=== PATIENT | female | born 1995 | race Caucasian/White ===

== ENCOUNTER 2017-01-20 16:03 | Emergency (ER) | payer OTHER ==
[2017-01-20 16:42] VITALS: BP 110/62; PULSE 60; RESP 17; TEMP 98.5; O2SAT 100
[2017-01-20 17:11] LABS: RBC URINE 1 /hpf (0-3); URINE BACTERIA RARE (<OCC); URINE BILIRUBIN NEGATIVE (NEGATIVE); URINE BLOOD NEGATIVE (NEGATIVE); URINE COLOR Yellow (YELLOW); URINE GLUCOSE (UA) NORMAL (Normal); URINE KETONE NEGATIVE (NEGATIVE); URINE PROTEIN NEGATIVE (NEGATIVE); URINE UROBILINOGEN NORMAL mg/dL (0.2-1.0); WBC URINE 3 /hpf (0-5)
[2017-01-20 17:12] LABS: URINE LEUKOCYTE ESTERASE NEGATIVE Leu/uL (Negative)
--- NOTE | 2017-01-20 17:44 | C.PDOC ---
History Of Present Illness 21 yo female w/o significant PMHx come in for evaluation of intermittent nausea and episodes of dizziness for apst 3-4 days. Pt reports, dizziness mostly on body position, " sometime feels like anxious, needs to leave the room". Otherwise, pt denies fever, chills, recent illness, severe headache, vertigo, visual changes, focal deficits, neck pain, CP, SOB, palpitation, cough, abd. pain, V/D, back pain, UTI sx. Ambulate to ED for evaluation, not in any apparent distress. Pt reports- asymptomatic at present time. FYI: Records from previous ED visits review, last one was on12/31/16 when pt was evaluated due to abdominal pain, blood work review and appears normal. Time Seen by Provider: 01/20/17 16:42 Chief Complaint (Nursing): Dizziness/Lightheaded History Per: Patient Onset/Duration Of Symptoms: Intermittent Episodes Past Medical History Reviewed: Historical Data, Nursing Documentation, Vital Signs Vital Signs: Last Vital Signs Temp 98.5 F 01/20/17 16:39 Pulse 60 01/20/17 16:39 Resp 17 01/20/17 16:39 BP 110/62 01/20/17 16:39 Pulse Ox 100 01/20/17 16:39 - Medical History PMH: Anemia Surgical History: No Surg Hx Family History: States: Unknown Family Hx - Social History Hx Alcohol Use: No Hx Substance Use: No - Immunization History Hx Tetanus Toxoid Vaccination: No Hx Influenza Vaccination: No Hx Pneumococcal Vaccination: No Review Of Systems Except As Marked, All Systems Reviewed And Found Negative. Constitutional: Negative for: Fever, Chills Eyes: Negative for: Vision Change ENT: Negative for: Throat Pain Cardiovascular: Negative for: Chest Pain, Palpitations Respiratory: Negative for: Cough, Shortness of Breath, Wheezing Gastrointestinal: Positive for: Nausea. Negative for: Vomiting, Abdominal Pain , Diarrhea Genitourinary: Negative for: Dysuria, Frequency, Vaginal Discharge, Vaginal Bleeding Musculoskeletal: Negative for: Neck Pain Skin: Negative for: Rash Neurological: Positive for: Dizziness. Negative for: Weakness, Numbness, Altered Mental Status, Headache Physical Exam - Physical Exam Appears: Well, Non-toxic, No Acute Distress Skin: Normal Color, Warm, Dry, No Rash Head: Atraumatic, Normacephalic Eye(s): bilateral: Normal Inspection, PERRL, EOMI Nose: Normal Throat: Normal, No Erythema, No Exudate, No Drooling Neck: Normal, Normal ROM, Supple Cardiovascular: Rhythm Regular Respiratory: Normal Breath Sounds, No Stridor, No Wheezing Gastrointestinal/Abdominal: Normal Exam, Soft, No Tenderness Back: Normal Inspection, No CVA Tenderness Extremity: Normal ROM, No Pedal Edema, No Deformity Neurological/Psych: Oriented x3, Normal Speech, Normal Motor, Normal Sensation, Normal Reflexes ED Course And Treatment - Laboratory Results Urine POC: Negative O2 Sat by Pulse Oximetry: 100 Pulse Ox Interpretation: Normal Progress Note: On re-evaluation, pt is afebrile, hemodynamicaly stable. Non- toxic. Tolerate Po well in ED. PusleOx 100% RA. ENT: no acute findings. neck : (-) meningeal sign. Lungs: CTA B/L, BS equal B/L. CVS: (+)S1S2, reg. Abd: benign. Neurologicaly intact. Pt advised and ref. to F/u with PMD in 2-3 days for re-eval. return ifa ny enw changes. Disposition Counseled Patient/Family Regarding: Studies Performed, Diagnosis, Need For Followup, Rx Given - Disposition Referrals: [facility] [Outside] Disposition: HOME/ ROUTINE Disposition Time: 17:20 Condition: STABLE Additional Instructions: ENCOURAGE FLUIDS FOLLOW UP WITH PMD IN 2-3 DAYS FOR RE-EVALUATION. RETURN TO ED IF ANY NEW CHANGES. Instructions: Dizziness (ED) - Clinical Impression Clinical Impression: Dizziness
== END 2017-01-20 18:00 | disposition home or self-care (01) ==
LOC: C.ER 16:03
DX: R42 Dizziness and giddiness (principal)

== ENCOUNTER 2017-04-10 13:11 | Emergency (ER) | payer MEDICAID, OTHER ==
[2017-04-10] MEDS ORDERED: Sodium Chloride 0.9% 1,000 ML IV ONE (13:27)
[2017-04-10] MEDS ORDERED: Sodium Chloride 0.9% 1,000 ML ONE (13:43)
[2017-04-10 14:04] LABS: BASO % 0.6 % (0.0-2.0); EOS # 0.1 K/uL (0.0-0.7); EOS % 2.7 % (0.0-4.0); HEMATOCRIT 37.6 % (34.0-47.0); LYMPH # 1.7 K/uL (1.0-4.3); LYMPH % 38.4 % (20.0-40.0); MEAN CORPUSCULAR HEMOGLOBIN 31.2 pg (27.0-31.0); MEAN CORPUSCULAR HGB CONC 34.3 g/dL (33.0-37.0); MEAN PLATELET VOLUME 8.3 fL (7.2-11.7); MONO # 0.3 K/uL (0.0-0.8); MONO % 7.3 % (0.0-10.0); RED CELL DISTRIBUTION WIDTH 12.1 % (11.5-14.5); WHITE BLOOD COUNT 4.3 K/uL (4.8-10.8)
[2017-04-10 14:07] LABS: RBC URINE 3 /hpf (0-3); URINE BILIRUBIN NEGATIVE (NEGATIVE); URINE BLOOD NEGATIVE (NEGATIVE); URINE COLOR Yellow (YELLOW); URINE GLUCOSE (UA) NORMAL (Normal); URINE KETONE 1+ mg/dL (NEGATIVE); URINE LEUKOCYTE ESTERASE TRACE Leu/uL (Negative); URINE PROTEIN NEGATIVE (NEGATIVE); URINE UROBILINOGEN NORMAL mg/dL (0.2-1.0); WBC URINE 4 /hpf (0-5)
[2017-04-10 14:15] LABS: CHLORIDE 101 mmol/L (98-107)
[2017-04-10 14:16] LABS: POTASSIUM 3.4 mmol/L (3.6-5.2); SODIUM 135 mmol/L (132-148)
[2017-04-10 14:18] LABS: ALB/GLOB RATIO 1.9 (1.0-2.1); ALKALINE PHOSPHATASE 70 U/L (38-126); ALT/SGPT 18 U/L (9-52); AST/SGOT 25 U/L (14-36); BILIRUBIN,TOTAL 1.5 mg/dL (0.2-1.3); BLOOD UREA NITROGEN 16 mg/dL (7-17); CARBON DIOXIDE 25 mmol/L (22-30); GFR AFRICAN-AMERICAN > 60; GLUCOSE,RANDOM 75 mg/dL (65-105); TOTAL PROTEIN 7.2 g/dL (6.3-8.3)
[2017-04-10 14:19] LABS: CALCIUM 8.7 mg/dl (8.6-10.4)
--- NOTE | 2017-04-10 14:28 | C.PDOC ---
History Of Present Illness 21 year old patient presents to the ED complaining of nausea and vomiting since this morning. Patient reports she ate a cheeseburger, fries with cheese, and other greasy foods. She had 3 episodes of vomiting and felt better afterwards. Patient denies abdominal pain, urinary symptoms, or diarrhea. Time Seen by Provider: 04/10/17 13:27 Chief Complaint (Nursing): Abdominal Pain History Per: Patient History/Exam Limitations: no limitations Onset/Duration Of Symptoms: Hrs (this morning) Current Symptoms Are (Timing): Still Present Context: Food Severity: None Pain Scale Rating Of: 0 Alleviating Factors: None Last Bowel Movement: Today Recent travel outside of the [place]: No Past Medical History Reviewed: Historical Data, Nursing Documentation, Vital Signs Vital Signs: Last Vital Signs Temp 98.5 F 04/10/17 14:39 Pulse 56 L 04/10/17 14:39 Resp 17 04/10/17 14:39 BP 92/62 L 04/10/17 14:39 Pulse Ox 100 04/10/17 15:33 - Medical History PMH: Anemia Family History: States: Unknown Family Hx - Social History Hx Alcohol Use: Yes Hx Substance Use: No - Immunization History Hx Tetanus Toxoid Vaccination: No Hx Influenza Vaccination: No Hx Pneumococcal Vaccination: No Review Of Systems Except As Marked, All Systems Reviewed And Found Negative. Gastrointestinal: Positive for: Nausea, Vomiting. Negative for: Abdominal Pain , Diarrhea Genitourinary: Negative for: Dysuria, Hematuria Physical Exam - Physical Exam Appears: Non-toxic, No Acute Distress Skin: Warm, Dry Head: Atraumatic, Normacephalic Oral Mucosa: Moist Neck: Normal ROM, Supple Chest: Symmetrical Cardiovascular: Rhythm Regular Respiratory: Normal Breath Sounds, No Rales, No Rhonchi, No Wheezing Gastrointestinal/Abdominal: Soft, No Tenderness, No Guarding, No Rebound Back: Normal Inspection, No CVA Tenderness Extremity: Bilateral: Atraumatic Neurological/Psych: Oriented x3, Normal Speech, Normal Cognition Gait: Steady ED Course And Treatment - Laboratory Results Result Diagrams: 04/10/17 13:57 04/10/17 13:57 O2 Sat by Pulse Oximetry: 100 (room air) Pulse Ox Interpretation: Normal Progress Note: Plan: Pepcid, Zofran, IV fluids, Labs Disposition - Disposition Referrals: [facility] Kirill Rejarad, [Non-Staff] - Disposition: HOME/ ROUTINE Disposition Time: 14:25 Condition: IMPROVED Additional Instructions: Thank you for letting us take care of you today. Your provider was Dr. Colunga. You were treated for gastritis. The emergency medical care you received today was directed at your acute symptoms. If you were prescribed any medication, please fill it and take as directed. It may take several days for your symptoms to resolve. Return to the Emergency Department if your symptoms worsen, do not improve, or if you have any other problems. Please contact your doctor or call one of the physicians/clinics you have been referred to that are listed on the Patient Visit Information form that is included in your discharge packet. Bring any paperwork you were given at discharge with you along with any medications you are taking to your follow up visit. Our treatment cannot replace ongoing medical care by a primary care provider (PCP) outside of the emergency department. Thank you for allowing the [facility] team to be part of your care today. Follow up with your doctor in 3-4 days if symptoms continue. Instructions: Gastritis (ED) Forms: Work Excuse - Clinical Impression Clinical Impression: Gastritis - Scribe Statement The provider has reviewed the documentation as recorded by the Scribe Laisha Montes Provider Attestation: All medical record entries made by the Daisyibe were at my direction and personally dictated by me. I have reviewed the chart and agree that the record accurately reflects my personal performance of the history, physical exam, medical decision making, and the department course for this patient. I have also personally directed, reviewed, and agree with the discharge instructions and disposition.
[2017-04-10 14:40] VITALS: BP 92/62; PULSE 56; RESP 17; TEMP 98.5; O2SAT 100
== END 2017-04-10 14:58 | disposition home or self-care (01) ==
LOC: C.ER 13:11
DX: K29.70 Gastritis, unspecified, without bleeding (principal)
CPT/HCPCS: 80053; 81001; 83690; 85025; 96361; 96374; 96375; 99284; J2405; J7040

== ENCOUNTER 2018-04-06 19:57 | Emergency (ER) | payer MEDICAID, OTHER ==
[2018-03-14 00:41] VITALS: BMI 23.5
--- NOTE | 2018-04-06 21:02 | OBHP ---
Datetime: 04/06/2018 20:55 IP Admit Plan: Observation/Evaluation Admit Comment, IP Provider: 22yo g1 edc 07/26 by 8wk us presents w/ c/o suprapubic pressure x2hrs. de nies coitus, vag bleeding, srom or decreased fm. receives care in [place] pmhx _ pshx:denies shx:denies etoh, illicit drugs or tobacco nkda medic: pnv i: 24.1wks p:ua ptl precuations f/u with ob clinic within 1wk Pelvic Type - PN: Adequate Extremities - PN: Normal Abdomen - PN: Normal Back - PN: Normal Lungs - PN: Normal Heart - PN: Normal Neurologic - PN: Normal HEENT - PN: Normal General - PN: Normal FHR - Baseline A Provider: 150 EGA AdmitDate IP: 24.1 Vital Signs Provider: Within Normal Limits IP Chief Complaint: Maternal discomfort; evaluation NICHD Variability Prov Fetus A: Moderate 6-25bpm NICHD Decel Fetus A IP Provider: None Dilatation, Provider: 0 Effacement, Provider: 0 Station, Provider: high Genitourinary Exam: Normal
[2018-04-06 21:21] LABS: SQUAMOUS EPITHIAL 75 /hpf (0-5); URINE BACTERIA RARE (<OCC); URINE BILIRUBIN NEGATIVE (NEGATIVE); URINE BLOOD NEGATIVE (NEGATIVE); URINE CLARITY Hazy (Clear); URINE COLOR Yellow (YELLOW); URINE GLUCOSE (UA) NORMAL (Normal); URINE LEUKOCYTE ESTERASE 2+ Leu/uL (Negative); URINE PROTEIN NEGATIVE (NEGATIVE)
[2018-04-07 02:16] VITALS: BP 105/56; PULSE 73; RESP 20; TEMP 98.4; O2SAT 98
== END 2018-04-06 22:00 | disposition home or self-care (01) ==
LOC: C.EROB 19:57
DX: O26.92 Pregnancy related conditions, unspecified, second trimester (principal); R10.2 Pelvic and perineal pain; Z3A.24 24 weeks gestation of pregnancy

== ENCOUNTER 2018-07-24 19:49 | Inpatient (IN) | payer MEDICAID, OTHER ==
[2018-07-24 20:07] VITALS: BMI 30.2
[2018-07-24] MEDS ORDERED: Penicillin G 5 Million Unit Vial IVPB ONE ×2 (20:31→22:45)
[2018-07-24] MEDS ORDERED: Lactated Ringer's 1,000 ML IV ONE (20:31)
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
[2018-07-24 21:14] LABS: BASO % 0.2 % (0.0-2.0); EOS # 0.1 K/uL (0.0-0.7); EOS % 1.3 % (0.0-4.0); HEMOGLOBIN 10.6 g/dL (11.0-16.0); LYMPH # 1.3 K/uL (1.0-4.3); LYMPH % 20.1 % (20.0-40.0); MEAN CELL VOLUME 87.6 fL (81.0-99.0); MEAN CORPUSCULAR HEMOGLOBIN 29.8 pg (27.0-31.0); MEAN PLATELET VOLUME 8.7 fL (7.2-11.7); MONO # 0.4 K/uL (0.0-0.8); MONO % 6.1 % (0.0-10.0); NEUT # 4.6 K/uL (1.8-7.0); NEUT % 72.3 % (50.0-75.0); NRBC % 0.1 % (0.0-2.0); RBC 3.55 Mil/uL (3.80-5.20); RED CELL DISTRIBUTION WIDTH 12.7 % (11.5-14.5); WHITE BLOOD COUNT 6.3 K/uL (4.8-10.8)
[2018-07-24 21:26] LABS: SQUAMOUS EPITHIAL 5 /hpf (0-5); URINE BACTERIA FEW (<OCC); URINE BILIRUBIN NEGATIVE (NEGATIVE); URINE BLOOD NEGATIVE (NEGATIVE); URINE CLARITY Hazy (Clear); URINE COLOR Yellow (YELLOW); URINE GLUCOSE (UA) NORMAL (Normal); URINE LEUKOCYTE ESTERASE 1+ Leu/uL (Negative); URINE PROTEIN NEGATIVE (NEGATIVE); URINE UROBILINOGEN NORMAL mg/dL (0.2-1.0)
[2018-07-24 21:28] LABS: ALB/GLOB RATIO 1.1 (1.0-2.1); ALBUMIN 3.4 g/dL (3.5-5.0); ALT/SGPT 13 U/L (9-52); AST/SGOT 21 U/L (14-36); BLOOD UREA NITROGEN 7 mg/dL (7-17); CALCIUM 8.5 mg/dl (8.6-10.4); GFR NON-AFRICAN AMERICAN > 60
[2018-07-24] MEDS ORDERED: Enoxaparin 30 mg Syringe SC SCH (22:00)
[2018-07-24 22:03] LABS: HEPATITIS B SURFACE AG Negative (NEGATIVE)
[2018-07-25] MEDS ORDERED: DiphenhydrAMINE 50 mg/ml Inj IVP STA (01:00)
[2018-07-25] MEDS ORDERED: Nalbuphine HCL 10 mg/ml Ampule IVP ONE (01:00)
[2018-07-25] MEDS ORDERED: Nalbuphine HCL 10 mg/ml Ampule ONE (01:12)
[2018-07-25] MEDS ORDERED: DiphenhydrAMINE 50 mg/ml Inj ONE (01:15)
[2018-07-25] MEDS ORDERED: Oxytocin 30 UNIT 30 UNITS/500 ML BAG IV ONE (05:34)
[2018-07-25] MEDS ORDERED: Oxytocin 30 UNIT 30 UNITS/500 ML BAG IV SCH (06:00)
[2018-07-25] MEDS ORDERED: Bupivacaine HCl/FentaNYL Cit 0 ML EPI ONE (06:15)
--- NOTE | 2018-07-25 08:12 | OBPN ---
Datetime: 07/25/2018 08:07 IP Progress Impression: Normal progression of labor; Reassuring heart rate IP Informed Consent Obtain: Vaginal Delivery IP Procedures: Artificial ROM; Sterile Vag Exam IP Progress Plan: Augmentation; Anticipate Vaginal Delivery Membranes, Provider: Ruptured Amniotic Fluid Color, Provider: Clear Contraction Comments Provider: 2-3 FHR - Baseline A Provider: 150 Gestation - Est Wks by US: 39.6 Presentation-Admit: Vertex IP Progress Note Comment: Pt comfortable with Epidural in place AROM with clear fluid SVE 7/100/-2 tracing reactive Hope for a vaginal delivery Vital Signs Provider: Reviewed; Within Normal Limits NICHD Accel Fetus A IP Provider: 10X10 NICHD Variability Prov Fetus A: Moderate 6-25bpm Station, Provider: -2 NICHD Decel Fetus A IP Provider: None Datetime: 07/24/2018 20:49 Dilatation, Provider: 3 Effacement, Provider: 70
[2018-07-25] MEDS ORDERED: Bupivacaine HCl/FentaNYL Cit 100 ML EPI ONE (14:12)
[2018-07-25] MEDS ORDERED: Lidocaine 2% MPF (5 ml) Inj ONE ×2 (16:16→16:17)
[2018-07-25] MEDS ORDERED: Oxycodone/Acetaminophen 5/325 mg Tab PO PRN (16:38)
--- NOTE | 2018-07-25 17:02 | OBDS ---
DELIVERY PERSONNEL Nurse Financial Analyst Intern Certified: N/A Delivery Doctor: Samuel Barkley MD Scrub Nurse: N/A Form Tamper: Malissa Louise RN Anesthesiologist: Kavitha Infante MD Change Room Attendant: N/A Resident: N/A MATERNAL INFORMATION Delivery Anesthesia: Epidural Medications in Delivery: Lidocaine Estimated Blood Loss (ml): 100 Placenta Cultured: No Maternal Complications: None RN Comments: Denton Mobley RN present for delivery. Pt.'s friend and father of baby present for willie marroquinluis. Provider Comments: , live male , EZIO position, nuchal cord x 1 - loose and easily reduced o triny infant's head. 's mouth and nose bulb-suctioned on perineum;umbilical cord doubly clamped a nd cut - infant attended to by labor nurse (patient did not want infant on her abdomen). Spontaneous delivery of placenta - grossly intact; 3 VC Uterine exploration performed - uterus contracted and firm Examnation of cervix, vagina and perineum - lacerations as described above; with repair. Hemostasis assured. Patient tolerated procedure bonding with father. Mother and infant in stable. condition EBL 400mL Weight 7lb 8 12lbs 's 8/9 LABOR SUMMARY EDC: 07/26/2018 00:00 No. Babies in Womb: 1 Attempted: No Labor Anesthesia: Epidural LABOR INFORMATION Reason for Induction: Not Applicable Onset of Labor: 07/25/2018 06:00 Complete Dilatation: 07/25/2018 14:00 Other Ripening Agents: N/A Oxytocin: Augmentation Group B Beta Strep: Done, Result Unknown Antibiotics # of Doses: 4 Antibiotics Time of Last Dose: 07/25/2018 @ 12:30pm Steroids Given: None Reason Steroids Not Administered: Not Applicable Other Reason Not Administered: N/A MEMBRANES Membranes Rupture Method: Artificial Rupture of Membranes: 07/25/2018 07:44 Length of Rupture (hrs): 8.13 Amniotic Fluid Color: Clear Amniotic Fluid Amount: Moderate Amniotic Fluid Odor: Normal STAGES OF LABOR Stage 1 hrs: 8 Stage 1 min: 0 Stage 2 hrs: 1 Stage 2 min: 52 Stage 3 hrs: 0 Stage 3 min: 8 Total Time in Labor hrs: 10 Total Time in Labor min: 0 VAGINAL DELIVERY Episiotomy: None Laceration Extension: Second Degree Laceration Type: Perineal Other Laceration: 1 degree Right labial Laceration Repair: Yes Laceration Repair Note: 2-0 chromic - perineal; 3-0 chromic - right labial - both in routine fashion . Hemostasis assured. Patient tolerated procedure well. Initial Vag Sponge Count: 11 (Annotations: Data stored by N on behalf of user) Initial Vag Sharps Count: 2 Sponge Count Correct: Yes Sharps Count Correct: Yes Count Comment: Correct BABY A INFORMATION Delivery Date/Time: 07/25/2018 15:52 Method of Delivery: Vaginal Born in Route : Yes : N/A Forceps: N/A Vacuum Extraction: N/A Shoulder Dystocia : No SHOULDER DYSTOCIA BABY A Infant Delivery Date/Time: 07/25/2018 15:52 PRESENTATION/POSITION BABY A Presentation: Cephalic Cephalic Presentation: Vertex Vertex Position: Right Occipital Anterior Breech Presentation: N/A PLACENTA INFORMATION BABY A Placenta Delivery Time : 07/25/2018 16:00 Placenta Method of Delivery: Spontaneous Placenta Status: Delivered SCORES BABY A Heart Rate 1 min: >100 bpm Resp Effort 1 min: Good Cry Reflex Irritability 1 min: Cough or Sneeze or Pulls Away Muscle Tone 1 min: Active Motion Color 1 min: Body [place], Extremities Blue Resuscitation Effort 1 min: Tactile Stimulation SCORE 1 MIN: 9 Heart Rate 5 min: >100 bpm Resp Effort 5 min: Good Cry Reflex Irritability 5 min: Cough or Sneeze or Pulls Away Muscle Tone 5 min: Active Motion Color 5 min: Body [place], Extremities Blue Resuscitation Effort 5 min: Tactile Stimulation SCORE 5 MIN: 9 INFANT INFORMATION BABY A Gestational Age at Delivery: 39.6 Gestational Status: Term Outcome : Liveborn Condition : Stable Sex: Male IDENTIFICATION/MEDS BABY A ID Band Number: [id number] ID Band Location: Left Leg; Left Arm Sensor Applied: Yes Sensor Number: [id number] Sensor Location : Cord Clamp WEIGHT/LENGTH BABY A Birthweight (gms): 3415 Infant Weight (lb): 7 Weight (oz): 8 Length Inches: 21.00 Infant Length cms: 53.3 CORD INFORMATION BABY A No. Cord Vessels: 3 Nuchal Cord : Around Neck x1, Loose Nuchal Cord Other: N/A True Knot: N/A Cord pH Baby Arterial: N/A Infant Cord pH Baby Venous: N/A Cord Blood Taken: Yes Banking/Donate Info: N/A Infant Suction: Mouth; Nose ASSESSMENT BABY A Infant Complications: Multiple Variable Decels Physical Findings at Delivery: Caput Succedaneum; Molding of the Head Infant Respirations: Appears Normal Chief Credit Officer/ALS Called : No Care By: Robert Mobley RN Transferred To: Remains with Mother
[2018-07-26] MEDS: Benzocaine/Menthol 20%-0.5% Topical Spray (60 ml) TOP PRN (03:53)
[2018-07-26 08:48] LABS: BASO % 0.2 % (0.0-2.0); EOS % 0.2 % (0.0-4.0); HEMOGLOBIN 9.7 g/dL (11.0-16.0); LYMPH # 1.2 K/uL (1.0-4.3); LYMPH % 7.8 % (20.0-40.0); MEAN CELL VOLUME 87.3 fL (81.0-99.0); MEAN CORPUSCULAR HGB CONC 34.4 g/dL (33.0-37.0); MEAN PLATELET VOLUME 8.4 fL (7.2-11.7); MONO # 0.5 K/uL (0.0-0.8); MONO % 3.5 % (0.0-10.0); NEUT # 13.2 K/uL (1.8-7.0); NEUT % 88.3 % (50.0-75.0); PLATELET COUNT 211 K/uL (130-400); RBC 3.24 Mil/uL (3.80-5.20); WHITE BLOOD COUNT 14.9 K/uL (4.8-10.8)
[2018-07-26] MEDS: Multiple Vitamins Tab PO SCH (09:17)
[2018-07-26 09:35] LABS: NEUTROPHIL 88 % (50-75); TOTAL CELLS COUNTED 100
[2018-07-26 09:36] LABS: LYMPHOCYTE 8 % (20-40); MONOCYTE 4 % (0-10); PLATELET ESTIMATE NORMAL (NORMAL)
--- NOTE | 2018-07-26 20:06 | OBPPN ---
Datetime: 07/26/2018 19:48 PP Pain Prov: Within normal limits PP Nausea Prov: Denies PP Flatus Prov: Yes PP BM Prov: No PP Breasts Prov: Normal PP Heart Prov: Normal PP Lungs Prov: Normal PP Abdomen/Uterus Prov: Normal PP Lochia Prov: Normal PP Vulva/Perineum Prov: Normal PP CVA Tenderness Prov: Normal PP Extremities Prov: Normal PP C/S Incision Prov: Not Applicable PP Progress Prov: Normal PP Comments Phys Exam Prov: Breasts: no cracked nipples Abdomen: Obese. (+) BS. Fundus firm, mobile. Non tender, 1 FB below umbilicus. Minimal lochia rubr a. All other systems reviewed and are negative PP Impression Prov: Normal progression PP Plan Prov: Continue present management PP Progress Note Prov: Patient seen and evaluated at approximately 1000 hours: received in bed in ro om 452. exclusively. Denies dizziness, palpitations, nausea, or vomiting. Ambulating a nd voiding without difficulty. P.E.: as above. WD in NAD. Awake, alert, oriented to time, person and place. Pleasant and cooperat surendra - WBC increased from 6.3 to 14.9 with 88% neutrophils. H/H decreased 10.6/31.1 to 9.7/26.3. Assessment: PPD#1, 22 y.o. P1, S/P ; afebrile, vital signs stable. Elevated WBC with left shift noted. Patient is afebrile; fundus firm. Chronic anemia; stable. Patient is asymptomatic . Clinicall y stable. Plan: 1) CBC in AM 2) Encourage ambulation 3) Encourage hydration Vital Signs Provider PP: Reviewed; Within Normal Limits
--- NOTE | 2018-07-26 20:27 | OBPPN ---
Datetime: 07/26/2018 19:48 PP Progress Note Prov: Patient seen and evaluated at approximately 1000 hours: received in bed in [facility] 452. exclusively. Denies dizziness, palpitations, nausea, or vomiting. Ambulating a nd voiding without difficulty. P.E.: as above. WD in NAD. Awake, alert, oriented to time, person and place. Pleasant and cooperat surendra - WBC increased from 6.3 to 14.9 with 88% neutrophils. H/H decreased 10.6/31.1 to 9.7/26.3. Assessment: PPD#1, 22 y.o. P1, S/P ; afebrile, vital signs stable. Elevated WBC with left shift noted. Patient is afebrile; fundus firm. Chronic anemia; stable. Patient is asymptomatic . Clinicall y stable. Plan: 1) CBC in AM 2) Encourage ambulation 3) Encourage hydration Addendum: 2024 hours - patient is Rh(-). [place] Rh(+). For Rhgam upon discharge.
[2018-07-27 08:08] VITALS: RESP 18; TEMP 97; O2SAT 97
[2018-07-27 08:12] LABS: BASO % 0.3 % (0.0-2.0); EOS # 0.2 K/uL (0.0-0.7); EOS % 2.2 % (0.0-4.0); HEMOGLOBIN 9.5 g/dL (11.0-16.0); LYMPH # 1.5 K/uL (1.0-4.3); LYMPH % 15.5 % (20.0-40.0); MEAN CELL VOLUME 88.1 fL (81.0-99.0); MEAN CORPUSCULAR HEMOGLOBIN 30.1 pg (27.0-31.0); MEAN CORPUSCULAR HGB CONC 34.1 g/dL (33.0-37.0); MEAN PLATELET VOLUME 8.9 fL (7.2-11.7); MONO # 0.5 K/uL (0.0-0.8); MONO % 5.3 % (0.0-10.0); NEUT # 7.3 K/uL (1.8-7.0); NEUT % 76.7 % (50.0-75.0); RBC 3.15 Mil/uL (3.80-5.20); RED CELL DISTRIBUTION WIDTH 13.1 % (11.5-14.5); WHITE BLOOD COUNT 9.6 K/uL (4.8-10.8)
[2018-07-27] MEDS: Multiple Vitamins Tab PO SCH (10:16)
--- NOTE | 2018-07-27 10:16 | OBDCSUM ---
Datetime: 07/27/2018 10:13 Discharged to, Provider: Home Follow up at, Provider: clinic Disch Instr Activity: Normal activity Disch Instr Diet: Regular Discharge Diagnosis, Provider: Term Delivered Follow up in weeks, Provider: 6 weeks Contraception discussed, Prov: Yes Disch Activity Restrictions: No exercising; No lifting; No sexual activity; Nothing in vagina - Inte rcourse, tampons, douche Discharge Diagnosis Prov Other: Contraception counseling Anemia Contraception after Delivery: Undecided
[2018-07-27] MEDS: Benzocaine/Menthol 20%-0.5% Topical Spray (60 ml) TOP PRN (10:18)
[2018-07-27] MEDS ORDERED: Influenza Vaccine 60 MCG/0.5 ML SYR (3 yr & up) IM ONE (10:19)
[2018-07-27 19:50] VITALS: BP 151/55; PULSE 68
== END 2018-07-27 15:50 | disposition home or self-care (01) | DRG 373 ==
LOC: C.EROB 19:49 → C.4D 20:30 → C.4M 07-26 01:30
PROVIDERS: ADMIT Obstetrics & Gynecology; ATTEND Obstetrics & Gynecology
PROC: 10E0XZZ Delivery of Products of Conception, External Approach (ICD-10-PCS; principal; 2018-07-24)
PROC: 0KQM0ZZ Repair Perineum Muscle, Open Approach (ICD-10-PCS; 2018-07-24)
DX: O69.81X0 Labor and delivery complicated by cord around neck, without compression, not applicable or unspecified (principal); O99.02 Anemia complicating childbirth; O70.1 Second degree perineal laceration during delivery; O76 Abnormality in fetal heart rate and rhythm complicating labor and delivery; Z3A.39 39 weeks gestation of pregnancy; O77.0 Labor and delivery complicated by meconium in amniotic fluid; Z37.0 Single live birth

== ENCOUNTER 2018-08-12 22:09 | Emergency (ER) | payer OTHER ==
[2018-08-12 22:10] VITALS: BMI 30.2
[2018-08-12 22:39] VITALS: BP 126/86; PULSE 94; TEMP 98; O2SAT 99
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
[2018-08-13 00:09] VITALS: RESP 20
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
--- NOTE | 2018-08-13 08:42 | RAD ---
Date of service: 08/12/2018 PROCEDURE: Right Knee Radiographs. HISTORY: fall knee pain COMPARISON: None. FINDINGS: BONES: Lateral femoral condylar benign-appearing bone island. No fracture. JOINTS: Normal. No osteoarthritis. JOINT EFFUSION: None. OTHER FINDINGS: None. IMPRESSION: No fracture. Other findings as above.
== END 2018-08-13 00:08 | disposition home or self-care (01) ==
LOC: C.ER 22:09
DX: S60.212A Contusion of left wrist, initial encounter (principal); S80.01XA Contusion of right knee, initial encounter; S80.211A Abrasion, right knee, initial encounter; Y08.89XA Assault by other specified means, initial encounter